=== PATIENT | female | born 1985 | race African-American/Black ===

== ENCOUNTER 2017-05-07 16:30 | Emergency (ER) | payer OTHER ==
[~2017-05-07] VITALS: Ht 170.2 cm; Wt 64.0 kg
[2017-05-07 20:20] VITALS: BP 128/79
== END 2017-05-07 22:16 | disposition home or self-care (01) ==
LOC: ER 16:30
DX: S92.342A Displaced fracture of fourth metatarsal bone, left foot, initial encounter for closed fracture (principal); Z88.2 Allergy status to sulfonamides; Z88.8 Allergy status to other drugs, medicaments and biological substances; Z88.1 Allergy status to other antibiotic agents; X58.XXXA Exposure to other specified factors, initial encounter; Y93.89 Activity, other specified; Y92.89 Other specified places as the place of occurrence of the external cause; Y99.8 Other external cause status
CPT/HCPCS: 29515; 73610; 73630; 99284